=== PATIENT | female | born 1970 | race American Indian/Alaskan Native ===

== ENCOUNTER 2018-09-24 14:44 | Emergency (ER) | payer OTHER, MEDICAID, SELFPAY ==
[2018-09-24 14:58] VITALS: BP 132/81; PULSE 91; RESP 20; TEMP 37.1; O2SAT 97
--- NOTE | 2018-09-24 15:04 | DI.RAD.S_ITS ---
PROCEDURE: XR FOOT LT MIN 3V INDICATIONS: injury TECHNIQUE: 3 views of the foot were acquired. COMPARISON: [facility], , FOOT 3V RIGHT, 06/14/2013, 16:01. FINDINGS: Bones: No fractures or dislocations. No suspicious bony lesions. Soft tissues: No tibiotalar joint effusion. Achilles tendon appears normal. IMPRESSION: No definite fracture or subluxation. There is a normal superimposition of multiple osseous margins over the foot and is unusual symptoms persist followup by dedicated CT or MR or delayed plain films would be recommended. Dictated by: Fredrick Gonzalez M.D. on 09/24/2018 at 15:43 Approved by: rFedrick Gonzalez M.D. on 09/24/2018 at 15:44
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
--- NOTE | 2018-09-24 15:39 | DI.RAD.S_ITS ---
PROCEDURE: XR KNEE LT 3V INDICATIONS: Pain TECHNIQUE: 3 views of the knee were acquired. COMPARISON: None. FINDINGS: Bones: No fractures or dislocations. No suspicious bony lesions. Soft tissues: No joint effusion. No suspicious soft tissue calcifications. IMPRESSION: No trauma found. A mild degree of thinning of the medial compartment joint interspaces present consistent with mild osteoarthritis area. Dictated by: Fredrick Gonzalez M.D. on 09/24/2018 at 16:12 Approved by: Fredrick Gonzalez M.D. on 09/24/2018 at 16:13
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
[2018-09-24 16:47] VITALS: BP 123/87; PULSE 82; RESP 16
== END 2018-09-24 16:55 | disposition home or self-care (01) ==
PROVIDERS: Emergency Provider Nurse Practitioner; Family Provider Family Medicine; PCP Family Medicine
DX: S93.402A Sprain of unspecified ligament of left ankle, initial encounter (principal); S80.02XA Contusion of left knee, initial encounter; V28.0XXA Motorcycle driver injured in noncollision transport accident in nontraffic accident, initial encounter
CPT/HCPCS: 73562; 73630; 99282; 99283